=== PATIENT | male | born 1980 | race Caucasian/White ===

== ENCOUNTER 2017-07-25 15:24 | Emergency (ER) | payer OTHER ==
[2017-07-25] MEDS ORDERED: Triple Antibiotic 0.94 gm Pkt TP STA (15:50)
[2017-07-25] MEDS ORDERED: Triple Antibiotic 0.94 gm Pkt TP ONE (15:51)
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
== END 2017-07-25 16:18 | disposition home or self-care (01) ==
LOC: ER 15:24
DX: S83.92XA Sprain of unspecified site of left knee, initial encounter (principal); S53.402A Unspecified sprain of left elbow, initial encounter; X58.XXXA Exposure to other specified factors, initial encounter; Y93.89 Activity, other specified; Y92.89 Other specified places as the place of occurrence of the external cause; Y99.8 Other external cause status
CPT/HCPCS: A4217; Z7502